=== PATIENT | female | born 1970 | race Asian ===

== ENCOUNTER 2022-09-06 10:52 | Outpatient (REF) | payer MEDICAID, OTHER, SELFPAY ==
--- NOTE | ~2022-09-06 | XR_ITS ---
EXAMINATION: XR LUMBOSACRAL SPINE CLINICAL INFORMATION: Acute midline low back pain COMPARISON: None available. TECHNIQUE: Three views of the lumbosacral spine. FINDINGS: There is normal lumbar lordosis. The vertebral heights, alignment and disc heights are normal. No visible acute fracture, dislocation or subluxation seen. No aggressive lytic or sclerotic process seen either. The paravertebral soft tissues are normal. XR/XR lumbar spine 2-3V IMPRESSION: Unremarkable lumbar spine examination.
== END 2022-09-06 10:53 | disposition home or self-care (01) ==
LOC: HO.XRAY 10:52
PROVIDERS: Visit Provider Student in an Organized Health Care Education/Training Program
DX: M54.50 Low back pain, unspecified (principal)
CPT/HCPCS: 72100

== ENCOUNTER 2023-09-30 12:53 | Outpatient (REF) | payer MEDICAID, OTHER, SELFPAY ==
[2023-09-30 15:27] LABS: Alanine Aminotransferase 17 U/L (0-31); Albumin Level 4.1 g/dL (3.5-5.0); Alkaline Phosphatase 54 U/L (39-117); Anion Gap 11 (12-20); Aspartate Amino Transferase 17 U/L (5-31); Bilirubin Direct 0.1 mg/dL (0.0-0.5); Bilirubin Total 0.4 mg/dL (0.0-1.0); Blood Urea Nitrogen 10 mg/dL (9-16); Calcium 9.5 mg/dL (8.4-10.2); Carbon Dioxide 27 mmol/L (22-29); Chloride 109 mmol/L (96-108); Cholesterol 195 mg/dL (<200); Estimated Glomerular Filt Rate > 60; Glucose Random 106 mg/dL (60-115); HDL Cholesterol 58 mg/dL (>40); LDL Cholesterol Calculated 125 mg/dL (<100); Potassium 4.6 mmol/L (3.3-5.1); Sodium 142 mmol/L (135-145); Total Protein 6.8 g/dL (6.5-8.0); Triglycerides 64 mg/dL (<150)
[2023-09-30 15:32] LABS: TSH reflex Free T4 0.02 uIU/mL (0.32-4.0); Thyroid Stimulating Hormone 0.02 uIU/mL (0.32-4.0); Vitamin D 25-OH Total 24.3 ng/mL (>30)
[2023-09-30 16:12] LABS: Vitamin B12 591 pg/mL (200-900)
[2023-09-30 16:42] LABS: Free T4 (Free Thyroxine) 1.22 ng/dL (0.71-1.85)
== END 2023-09-30 12:54 | disposition home or self-care (01) ==
LOC: HO.CHCLDS 12:53
PROVIDERS: Visit Provider Student in an Organized Health Care Education/Training Program
DX: E53.8 Deficiency of other specified B group vitamins (principal); E03.8 Other specified hypothyroidism; E55.9 Vitamin D deficiency, unspecified
CPT/HCPCS: 36415; 80048; 80061; 80076; 82306; 82607; 84439; 84443

== ENCOUNTER 2024-01-08 11:41 | Outpatient (REF) | payer MEDICAID, OTHER, SELFPAY ==
[2024-01-08 15:04] LABS: Alanine Aminotransferase 16 U/L (0-31); Albumin Level 4.3 g/dL (3.5-5.0); Alkaline Phosphatase 54 U/L (39-117); Anion Gap 12 (12-20); Aspartate Amino Transferase 19 U/L (5-31); Bilirubin Direct 0.2 mg/dL (0.0-0.5); Bilirubin Total 0.8 mg/dL (0.0-1.0); Blood Urea Nitrogen 15 mg/dL (9-16); Calcium 9.8 mg/dL (8.4-10.2); Carbon Dioxide 26 mmol/L (22-29); Chloride 108 mmol/L (96-108); Cholesterol 245 mg/dL (<200); Estimated Glomerular Filt Rate > 60; Glucose Random 87 mg/dL (60-115); HDL Cholesterol 56 mg/dL (>40); LDL Cholesterol Calculated 173 mg/dL (<100); Potassium 3.9 mmol/L (3.3-5.1); Sodium 142 mmol/L (135-145); Total Protein 7.1 g/dL (6.5-8.0); Triglycerides 82 mg/dL (<150)
[2024-01-08 15:19] LABS: TSH reflex Free T4 5.32 uIU/mL (0.32-4.0); Vitamin D 25-OH Total 26.5 ng/mL (>30)
[2024-01-08 16:43] LABS: Free T4 (Free Thyroxine) 0.95 ng/dL (0.71-1.85)
[2024-01-08 18:47] LABS: Folate 12.5 ng/mL (> or = 4.0); Vitamin B12 509 pg/mL (200-900)
== END 2024-01-08 11:42 | disposition home or self-care (01) ==
LOC: HO.CHCLDS 11:41
PROVIDERS: Visit Provider Student in an Organized Health Care Education/Training Program
DX: E03.8 Other specified hypothyroidism (principal); E53.8 Deficiency of other specified B group vitamins; E55.9 Vitamin D deficiency, unspecified
CPT/HCPCS: 36415; 80048; 80061; 80076; 82306; 82607; 82746; 84439; 84443

== ENCOUNTER → 2024-02-05 15:45 | Outpatient (BNV) | payer OTHER, SELFPAY | PROVIDERS: Visit Provider Internal Medicine | DX: Z12.31 Encounter for screening mammogram for malignant neoplasm of breast (principal) | CPT/HCPCS: 77063; 77067 ==

== ENCOUNTER 2024-02-05 15:46 | Outpatient (REF) | payer OTHER, SELFPAY ==
--- NOTE | ~2024-02-05 | MM_ITS ---
EXAMINATION: MM SCREENING DIGITAL BREAST TOMOSYNTHESIS, BILATERAL CLINICAL INFORMATION: Screening. Asymptomatic. COMPARISON: Mammography: No prior images available for comparison. TECHNIQUE: Digital breast mammography with tomosynthesis is performed in both the craniocaudal and mediolateral oblique views along with computer-aided detection (CAD). FINDINGS: There are scattered areas of fibroglandular density (ACR BI-RADS breast composition Category b). There are no significant masses, abnormal calcifications, or other abnormalities. MM/MM tomosynthesis screening BI IMPRESSION: No mammographic evidence of malignancy. ASSESSMENT: BI-RADS BI-RADS 1 - Negative RECOMMENDATION: Routine annual mammography screening. 1 year F/U This examination should not preclude the clinical evaluation of a suspicious palpable abnormality. This patient's information was entered into a reminder system with a target due date for their next mammogram. Electronically signed by: Poppy Gale DO 02/18/2024 12:23 PM EDT
== END 2024-02-05 15:47 | disposition home or self-care (01) ==
LOC: HO.MAMMO 15:46
PROVIDERS: Visit Provider Student in an Organized Health Care Education/Training Program
DX: Z12.31 Encounter for screening mammogram for malignant neoplasm of breast (principal)
CPT/HCPCS: 77063; 77067

== ENCOUNTER 2024-06-24 12:38 | Outpatient (REF) | payer OTHER, SELFPAY ==
--- OUTSIDE RECORDS SUMMARY | 2024-06-24 13:31 | XMS_ITS | Encounter Summary ---
Author Organization [employer] Address [address] [place] [address] [address] [place] [address] Care Team Providers Care Volunteer Services Supervisor Name Role Phone Savannah Zapata MD Primary Care Provider [phone] Reason for Visit * Reason Comments Pre-visit Planning (Unable to reach for PVP screening, LVM) Encounter Details Date Type Department Care Team ([facility] Contact Info) Description 06/10/2024 Patient Outreach [facility] MEDICINE [address] [place] [address] Savannah Zapata MD [address] [place] [address] Pre-visit Planning ((Unable to reach for PVP screening, LVM)) Social History Tobacco Use Types Packs/Day Years Used Date Smoking Tobacco: Never Assessed Comments Unknown Sex and Gender Information Value Date Recorded Sex Assigned at Female 03/04/2022 10:29 AM EDT Legal Sex Female 10:29 AM EDT Gender Identity Female 09/06/2022 9:54 AM EDT Sexual Orientation Straight 09/06/2022 9: 55 AM EDT documented as of this encounter Progress Notes * Arlet Mera - 06/10/2024 10:24 AM EST HECTOR Nice. Placed outbound call to patient to complete pre-visit planning. No answer at this time. Patient name and were not confirmed. CC left voicemail requesting return call. Direct contact information provided. documented in this encounter Plan of Treatment Upcoming Encounters Date Type Department Care Team ([facility] st Contact Info) Description 06/29/2024 10:15 AM EST Procedure Visit [facility] MED & PEDS [address] [place] [address] Savannah Zapata MD [address] [place] [address] documented as of this encounter Visit Diagnoses Not on filedocumented in this encounter Care Teams Volunteer Services Supervisor Relationship Specialty Start Date End Date Savannah Zapata MD [address] [place] [address] PCP - General Family Medicine 09/28/15 documented as of this encounter
--- OUTSIDE RECORDS SUMMARY | 2024-06-24 13:31 | XMS_ITS | Encounter Summary ---
Author Organization [employer] Address [address] [place] [address] [address] [place] [address] Care Team Providers Care Laborer [employer] Name Role Phone Savannah Zapata MD Primary Care Provider [phone] Reason for Visit * Reason Comments Med Refill Encounter Details Date Type Department Care Team (Late st Contact Info) Description 09/17/2022 Refill [facility] MED & PEDS [address] [place] [address] Savannah Zapata MD [address] [place] [address] Social History Tobacco Use Types Packs/Day Years Used Date Smoking Tobacco: Never Assessed Comments Unknown Sex and Gender Information Value Date Recorded Sex Assigned at Female 03/04/2022 10:29 AM EDT Legal Sex Female 10:29 AM EDT Gender Identity Female 09/06/2022 9:54 AM EDT Sexual Orientation Straight 09/06/2022 9: 55 AM EDT COVID-19 Exposure Response Date Recorded In the last 10 days, have yo u been in contact with someone who was confirmed or suspected to have Coronavirus/COVID-19? No / Unsure 09/06/2022 9:52 AM EDT documented as of this encounter Plan of Treatment Upcoming Encounters Date Type Department Care Team (Late st Contact Info) Description 06/29/2024 10:15 AM EST Procedure Visit [facility] CHC MED & PEDS [address] [place] [address] Savannah Zapata MD [address] [place] [address] documented as of this encounter Visit Diagnoses Not on filedocumented in this encounter Care Teams Laborer [employer] Relationship Specialty Start Date End Date Savannah Zapata MD [address] [place] [address] PCP - General Family Medicine 09/28/15 documented as of this encounter
--- OUTSIDE RECORDS SUMMARY | 2024-06-24 13:31 | XMS_ITS | Encounter Summary ---
Author Organization [employer] Address [address] [facility] 7t [place] [address] Care Team Providers Care Curriculum Assistant Principal Name Role Phone Savannah Zapata MD Primary Care Provider [phone] Reason for Visit * Reason Onset Date Comments Lab Orders 09/22/2023 Encounter Details Date Type Department Care Team ([facility] st Contact Info) Description 09/22/2023 Telephone [facility] MEDICINE [address] [place] [address] Savannah Zapata MD [address] [place], [place] [id number] Lab Orders Social History Tobacco Use Types Packs/Day Years Used Date Smoking Tobacco: Never Assessed Comments Unknown Sex and Gender Information Value Date Recorded Sex Assigned at Female 03/04/2022 10:29 AM EDT Legal Sex Female 10:29 AM EDT Gender Identity Female 09/06/2022 9:54 AM EDT Sexual Orientation Straight 09/06/2022 9: 55 AM EDT documented as of this encounter Miscellaneous Notes * Telephone Encounter - Wing Nademe RN - 09/22/2023 4:42 PM EDT Tc to pt's daughter, confirmed pt's name and . Daughter states they would like TSH levels taken again to see how levothyroxine is working. She states pt's [place] doctor was seen last November and recommended pt follow up in three months. The family forgot to schedule appt and wanted this done urgently and refused appts to see PCP in October. Scheduled pt to see PCP on 5/21 at 3 pm. Daughter verbalized understanding and agreement with plan. * Telephone Encounter - Luis Love - 09/22/2023 3:47 PM EDT Tc from the patients daughter requesting lab orders just to make sure the patient is ok there is noconcerns at the moment documented in this encounter Plan of Treatment Upcoming Encounters Date Type Department Care Team (Late st Contact Info) Description 06/29/2024 10:15 AM EST Procedure Visit [facility] MED & PEDS [address] [place] [address] Savannah Zapata MD [address] [place] [address] documented as of this encounter Visit Diagnoses Not on filedocumented in this encounter Care Teams Curriculum Assistant Principal Relationship Specialty Start Date End Date Savannah Zapata MD [address] [place] [address] PCP - General Family Medicine 09/28/15 documented as of this encounter
--- OUTSIDE RECORDS SUMMARY | 2024-06-24 13:31 | XMS_ITS | Encounter Summary ---
Author Organization [employer] Address [address] [place] [address] 7t [place] [address] Care Team Providers Care Children'S Tutor Name Role Phone Savannah Zapata MD Primary Care Provider [phone] Reason for Visit * Reason Onset Date Comments Nurse Triage 06/01/2024 Encounter Details Date Type Department Care Team ([facility] st Contact Info) Description 06/01/2024 Telephone [facility] MEDICINE [address] [place] [address] Savannah Zapata MD [address] [place] [address] Nurse Triage Social History Tobacco Use Types Packs/Day Years Used Date Smoking Tobacco: Never Assessed Comments Unknown Sex and Gender Information Value Date Recorded Sex Assigned at Female 03/04/2022 10:29 AM EDT Legal Sex Female 10:29 AM EDT Gender Identity Female 09/06/2022 9:54 AM EDT Sexual Orientation Straight 09/06/2022 9: 55 AM EDT documented as of this encounter Miscellaneous Notes * Telephone Encounter - Samantha Apodaca MA - 06/03/2024 10:41 AM EST Booked an appt with Dr. Zapata for fu chronic conditions. * Telephone Encounter - Shiloh Breaux LPN - 06/02/2024 4:41 PM EST Triage call returned to patient Daughter with her Mom who reports that patient has had urinary burning off and on for about a year. Reports burning with urination at present and no blood or pus reported no fever has some low back pain. Disposition reviewed and Daughter advised of [facility] hours and availability for today and tomorrow. Daughter will call early AM to see if [facility] has any availability. Daughter is also requesting to schedule routine exam with PCP. No PCP availability for Triage at time of call. Forwarded to PCP and team as FYI to follow up PRN Disposition reviewed and in agreement with plan. [facility] hours and availability explained. Triage nurse informed the patient may have a wait of 1-2 hours because Walk In [facility] may have delays from patient's walking in with urgent medical needs. Protocol Used: Urinary Symptoms (Adult) Protocol-Based Disposition: See in Office or Video Visit Today Override (Final) Disposition: Go to Urgent Care Now Override Reason: End of day or office closed Video visit not offered Positive Triage Question: * Urinating more frequently than usual (i.e., frequency) OR new-onset of the feeling of an urgent need to urinate (i.e., urgency) * All higher-acuity triage questions were negative * Telephone Encounter - Henry Enciso - 06/02/2024 4:02 PM EST Daughter returning call Please call [phone] * Telephone Encounter - Rashmi Esquivel RN - 06/01/2024 1:52 PM EST Called pt. Daughter but phone just kept ringing. Unable to leave voicemail. Called back x2 and phone just rang for a long time and unable to leave any voicemail. RE: Urination pain * Telephone Encounter - Candis Tyler - 06/01/2024 12:51 PM EST Symptom: Urination Pain Outcome: Schedule a same-day appointment or talk to a nurse or provider today Reason: Caller denied all higher acuity questions The caller accepted this outcome. documented in this encounter Plan of Treatment Upcoming Encounters Date Type Department Care Team (Late st Contact Info) Description 06/29/2024 10:15 AM EST Procedure Visit [facility] MED & PEDS [address] [place] [address] Savannah Zapata MD [address] [place] [address] documented as of this encounter Visit Diagnoses Not on filedocumented in this encounter Care Teams Children'S Tutor Relationship Specialty Start Date End Date Savannah Zapata MD [address] [place] [address] PCP - General Family Medicine 09/28/15 documented as of this encounter
--- OUTSIDE RECORDS SUMMARY | 2024-06-24 13:31 | XMS_ITS | Encounter Summary ---
Author Organization [employer] Address [address] [place] [address] 7t [place] [address] Care Team Providers Care Supervisor [employer] Name Role Phone Savannah Zapata MD Primary Care Provider [phone] Reason for Visit * Reason Comments Insomnia Encounter Details Date Type Department Care Team (Latest Contact Info) Description 06/24/2024 11:15 AM EST Office Visit [facility] CHC MED & PEDS [address] [place], [place] [phone] Savannah Zapata MD [address] [place] [address] Other specified hypothyroidism (Primary Dx); Vitamin D deficiency; Insomnia, unspecified type Social History Tobacco Use Types Packs/Day Years Used Date Smoking Tobacco: Never Smokeless Tobacco: Never Tobacco Cessation:Counseling Given: Not Answered Alcohol Use Standard Drinks/Week Comments Never 0 (1 standard drink = 0.6 oz pur e alcohol) Depression Answer Date Recorded Patient Health Questionnaire-9 Score 6 06/24/2024 Patient Health Questionnaire-9 Score 6 06/24/2024 Last PHQ-9: Questionnaire Data Not on file 0 06/24/2024 Depression Answer Date Recorded Patient Health Questionnaire-2 Score 2 06/24/2024 Comments Unknown Sex and Gender Information Value Date Recorded Sex Assigned at Female 03/04/2022 10:29 AM EDT Legal Sex Female 10:29 AM EDT Gender Identity Female 09/06/2022 9:54 AM EDT Sexual Orientation Straight 09/06/2022 9: 55 AM EDT documented as of this encounter Last Filed Vital Signs Vital Sign Reading Time Taken Comments Blood Pressure 132/77 06/24/2024 11:25 AM EST Pulse 58 06/24/2024 11:25 AM EST Temperature 36.7 ??C (98 ??F) 06/24/2024 11:25 AM EST Respiratory Rate 18 06/24/2024 11:25 AM EST Oxygen Saturation 98% 06/24/2024 11:25 AM EST Inhaled Oxygen Concentration - - Weight 79.8 kg (176 lb) 06/24/2024 11:25 AM EST Height 162.6 cm (5' 4 ) 06/24/2024 11:25 AM EST Body Mass Index 30.21 06/24/2024 11:25 AM EST documented in this encounter Plan of Treatment Upcoming Encounters Date Type Department Care Team (Late st Contact Info) Description 06/29/2024 10:15 AM EST Procedure Visit [facility] MED & PEDS [address] [place], [place] [phone] Savannah Zapata MD [address] [place], [place] [phone] Scheduled Orders Name Type Priority Associated Diagnoses Orde r Schedule TSH with Reflex to Free T4 Lab Routine Other specified hypothyroidism Expected: 06/24/2024 (Approximate), Expires: 06/24/2025 Hepatic Function Panel Lab Routine Other specified hypothyroidism Expected: 06/24/2024 (Approximate), Expires: 06/24/2025 Lipid Panel, Standard Lab Routine Other specified hypothyroidism Expected: 06/24/2024 (Approximate), Expires: 06/24/2025 Basic Metabolic Panel Lab Routine Other specified hypothyroidism Expected: 06/24/2024 (Approximate), Expires: 06/24/2025 Vitamin D, 25-Hydroxy, Total, Immunoassay Lab Routine Vitamin D deficiency Expected: 06/24/2024 (Approximate), Expires: 06/24/2025 documented as of this encounter Visit Diagnoses Diagnosis Other specified hypothyroidism- Primary Vitamin D deficiency Insomnia, unspecified type documented in this encounter Additional Health Concerns Assessment Noted Time PHQ-9 Depression Total Score: 6 06/24/19 11:26 AM EST documented as of this encounter Care Teams Supervisor [employer] Relationship Specialty Start Date End Date Savannah Zapata MD [address] [place] [address] PCP - General Family Medicine 09/28/15 documented as of this encounter
--- OUTSIDE RECORDS SUMMARY | 2024-06-24 13:31 | XMS_ITS | Encounter Summary ---
Author Organization [employer] Address [address] [place] [address] 7[address] [place] [address] Care Team Providers Care Mail Sorter Name Role Phone Savannah Zapata MD Primary Care Provider [phone] Reason for Visit * Reason Comments Med Refill Encounter Details Date Type Department Care Team (Late Contact Info) Description 09/22/2023 Refill [facility] MED & PEDS [address] [place] [address] Savannah Zapata MD [address] [place] [address] Social History Tobacco Use Types Packs/Day Years [...] Encounters Date Type Department Care Team (Late Contact Info) Description 06/29/2024 10:15 AM EST Procedure Visit [facility] CHC MED & PEDS [address] [place] [address] Savannah Zapata MD [address] [place] [address] documented as of this encounter Visit Diagnoses Not on filedocumented in this encounter Care Teams Mail Sorter Relationship Specialty Start Date End Date Savannah Zapata MD [address] [place] [address], [place] [address] PCP - General Family Medicine 09/28/15 documented as of this encounter
--- OUTSIDE RECORDS SUMMARY | 2024-06-24 13:31 | XMS_ITS | Encounter Summary ---
Author Organization [employer] Address [address] [place] [address] [address] [place] [address] Care Team Providers Care Dish Cloth Inspector Name Role Phone Savannah Zapata MD Primary Care Provider [phone] Reason for Visit * Reason Onset Date Comments Med Refill 09/22/2023 Encounter Details Date Type Department Care Team (Late st Contact Info) Description 09/22/2023 Telephone [facility] MEDICINE [address] [place] [address] Savannah Zapata MD [address] [place] [address] Med Refill Social History Tobacco Use Types Packs/Day Years Used Date Smoking Tobacco: Never Assessed Comments Unknown Sex and Gender Information Value Date Recorded Sex Assigned at Female 03/04/2022 10:29 AM EDT Legal Sex Female 10:29 AM EDT Gender Identity Female 09/06/2022 9:54 AM EDT Sexual Orientation Straight 09/06/2022 9: 55 AM EDT documented as of this encounter Miscellaneous Notes * Telephone Encounter - Luis Love - 09/22/2023 3:38 PM EDT Tc from patients daughter requesting the status of the levothyroxine (Synthroid, Levoxyl) 100 MCG tablet medical technical writer did call pharmacy and was told has not received the script for the medication documented in this encounter Plan of Treatment Upcoming Encounters Date Type Department Care Team (Late Contact Info) Description 06/29/2024 10:15 AM EST Procedure Visit [facility] CHC MED & PEDS [address] [place] [address] Savannah Zapata MD [address] [place] [address] documented as of this encounter Visit Diagnoses Not on filedocumented in this encounter Care Teams Dish Cloth Inspector Relationship Specialty Start Date End Date Savannah Zapata MD [address] [place] [address] PCP - General Family Medicine 09/28/15 documented as of this encounter
--- OUTSIDE RECORDS SUMMARY | 2024-06-24 13:31 | XMS_ITS | Clinical Summary ---
Author Organization [employer] Address [address] [facility] [address] [place] [address] Care Team Providers Care Textile Knitter Name Role Phone Savannah Zapata MD Primary Care Provider [phone] Allergies No known active allergies Medications cholecalciferol (Vitamin D-3) 25 MCG (1000 UT) tablet Take 1 tablet (25 mcg) by mouth Once per day. 60 tablet 3 01/12/2024 5 Active levothyroxine (Synthroid) 100 MCG tablet Take 1 tablet (100 mcg) by mouth before breakfast. 30 tablet 11 01/12/2024 5 Active Melatonin 3 MG capsule 1 cap daily at night 30 capsule 3 06/24/2024 Active ibuprofen 600 MG tablet Take 1 tablet (600 mg) by mouth 3 times daily. 90 tablet 06/24/2024 5 Active Active Problems Problem Noted Date Diagnosed Date Vitamin D deficiency 01/08/2024 B12 deficiency 01/08/2024 Other specified hypothyroidism 09/06/2022 Encounters Date Type Department Care Team Description 06/24/2024 11:15 AM EST Office Visit [facility] [address] [place], [place] [phone] Savannah Zapata MD Other specified hypothyroidism (Primary Dx); Vitamin D deficiency; Insomnia, unspecified type 06/24/2024 Travel 06/10/2024 Patient Outreach [facility] [address] [place] [address] Savannah Zapata MD Pre-visit Planning ((Unable to reach for PVP screening, LVM)) 06/01/2024 Telephone [facility] [address] [place] [address] Savannah Zapata MD Nurse Triage from Last 3 Months Immunizations Name Administration Dates Next Due MMR 01/11/2019 Tdap 01/11/2019,12/03/2017 Social History Tobacco Use Types Packs/Day Years [...] Orientation Straight 09/06/2022 9: 55 AM EDT Last Filed Vital Signs Vital Sign Reading [...] Mass Index 30.21 06/24/2024 11:25 AM EST Plan of Treatment Upcoming Encounters Date Type Department Care Team (Late st Contact Info) Description 06/29/2024 10:15 AM EST Procedure Visit [facility] [address] [place] [address] Savannah Zapata MD [address] [place] [address] Health Maintenance Due Date Last Done Comments CT Colonography 1968 Colonoscopy 1968 FIT 1968 FOBT 1968 HIV Screening 1968 SDOH Screening 1968 Sigmoidoscopy 1968 Hepatitis C Screening 1986 Hepatitis B Vaccines (1 of 3 - 19+ 3-dose series) 1987 Pap Smear 1989 Cervical Cancer Screening 1998 HPV/Cotest 1998 Pneumococcal Vaccine: 50+ Years (1 of 1 - PCV) 2018 Zoster Vaccines (1 of 2) 2018 COVID-19 Vaccine (2 - 2023-2 5 season) 2024 08/26/2020 Influenza Vaccine (#1) 2024 Alcohol/Substance Use Screening 06/24/2025 06/24/2024 Depression Screening 06/24/2025 06/24/2024, 06/24/2024 Tobacco Screening 06/24/2025 06/24/2024 Mammogram 02/04/2026 02/05/2024 Colorectal Cancer Screening 02/19/2027 FIT DNA/Cologuard 02/19/2027 02/20/2024 DTaP/Tdap/Td Vaccines (3 - T d or Tdap) 01/11/2029 01/11/2019, 12/03/2017 RSV Patients and Patients Aged 60 years or older (1 - 1-dose 75+ series) 2043 HIB Vaccines Aged Out No longer eligi ble based on patient's age to complete this topic HPV Vaccines Aged Out No longer eligi ble based on patient's age to complete this topic Hepatitis A Vaccines Aged Out No long er eligible based on patient's age to complete this topic IPV Vaccines Aged Out No longer eligi ble based on patient's age to complete this topic Meningococcal Vaccine Aged Out No michael sal eligible based on patient's age to complete this topic RSV under 20 months Aged Out No longe r eligible based on patient's age to complete this topic Rotavirus Vaccines Aged Out No longer eligible based on patient's age to complete this topic Procedures Procedure Name Priority Date/Time Associated Diagnosis Comments LAB COLOGUARD?? COLON CANCER SCREEN Routine 02/20/2024 2:00 AM EDT Encounter for screening for malignant neoplasm of colon BI MAMMOGRAM SCREENING TOMOSYNTHESIS BILATERAL Routine 02/05/2024 3:55 PM EDT Encounter for screening mammogram for breast cancer from Last 3 Months or Most Recently Relevant to Health Maintenance Results * Cologuard?? colon cancer screening (02/20/2024 2:00 AM EDT) Cologuard Result Negative Negative 02/26/20 8:47 PM EDT [facility] (CLIA #:[id number]) Comment: NEGATIVE TEST RESULT. A negative Cologuard result indicates a low likelihood that a colorectal cancer (CRC) or advanced adenoma (adenomatous polyps with more advanced pre-malignant features) ??is present. The chance that a person with a negative Cologuard test has a colorectal cancer is less than 1 in 1500 (negative predictive value >99.9%) or has an ??advanced adenoma is less than ??5.3% (negative predictive value 94.7%). These data are based on a prospective cross-sectional study of 10,000 individuals at average risk for colorectal cancer who were screened with both Cologuard and colonoscopy. (Ivy Barraza. et al, N Engl J Med 2014;370(14):1286- 1297) The normal value (reference range) for this assay is negative. COLOGUARD RE-SCREENING RECOMMENDATION: Periodic colorectal cancer screening is an important part of preventive healthcare for asymptomatic individuals at average risk for colorectal cancer. ??Following a negative Cologuard result, the [place] [employer] Society and U.S. Multi-Society Task Force screening guidelines recommend a Cologuard re-screening interval of 3 years. References: [place] [employer] Guideline for Colorectal Cancer Screening: https://www.cancer.org/cancer/swoln-krplrm-zixwtu/btpzfbboy-wmqfnxjkz-mjgtbrw/ac s-rec ommendations.html.; Home ABURTO, Anabel ROBERSON, Vivian CELESTE, Colorectal Cancer Screening: Recommendations for Physicians and Patients from the U.S. Multi-Society Task Force on Colorectal Cancer Screening , Am J Gastroenterology 2017; 112:7042-4315. TEST DESCRIPTION: Composite algorithmic analysis of stool DNA-biomarkers with hemoglobin immunoassay. ?? Quantitative values of individual biomarkers are not reportable and are not associated with individual biomarker result reference ranges. Cologuard is intended for colorectal cancer screening of adults of either sex, 45 years or older, who are at average-risk for colorectal cancer (CRC). Cologuard has been approved for use by the U.S. FDA. The performance of Cologuard was established in a cross sectional study of average-risk adults aged 50-84. Cologuard performance in patients ages 45 to 49 years was estimated by sub-group analysis of near-age groups. Colonoscopies performed for a positive result may find as the most clinically significant lesion: colorectal cancer [4.0%], advanced adenoma (including sessile serrated polyps greater than or equal to 1cm diameter) [20%] or non- advanced adenoma [31%]; or no colorectal neoplasia [45%]. These estimates are derived from a prospective cross-sectional screening study of 10,000 individuals at average risk for colorectal cancer who were screened with both Cologuard and colonoscopy. (Ivy Walker et al, N Engl J Med 2014;370(14):2452-2124.) Cologuard may produce a false negative or false positive result (no colorectal cancer or precancerous polyp present at colonoscopy follow up). A negative Cologuard test result does not guarantee the absence of CRC or advanced adenoma (pre-cancer). The current Cologuard screening interval is every 3 years. ([place] [employer] Society and U.S. Multi-Society Task Force). Cologuard performance data in a 10,000 patient pivotal study using colonoscopy as the reference method can be accessed at the following location: www.[employer]/results. Additional description of the Cologuard test process, warnings and precautions can be found at www.[employer].com. Stool specimen (specimen) 02/20/2024 2:00 AM EDT 02/21/2024 10:46 AM EDT us Savannah Zapata MD LAB MOLECULAR DIAGNOSTICS ORDERA BLES Final Result [facility] (CLIA #:[id number]) [address] [address], * BI Mammogram Screening Tomosynthesis Bilateral (02/05/2024 3:55 PM EDT) Anatomical Region Laterality Modality Breast Bilateral Mammography 02/05/2024 3:55 PM EDT Narrative 02/18/2024 12:26 PM EDT ? [facility] [place] ? [address] ?[place] [address] ? Mammography Report ? Signed ? Patient: Cukur,Emine ?MR#: [id number] ? : 1970 ?Acct:[id number] ? Age/Sex: 53 / F ?ADM Date: 02/05/24 ? Loc: HO.MAMMO ? Attending Dr: Savannah S Jodi MD ? Ordering Physician: Jodi,Savannah S MD ?Results: 1Negati ?? ve ? Date of Service: 02/05/24 ?Follow Up: 1 Year From Orig ?? inal Mammogram ? Procedure(s): MM tomosynthesis screening BI ?? Accession Number(s): [id number] ? cc: Savannah Zapata MD ? EXAMINATION: ?? MM SCREENING DIGITAL BREAST TOMOSYNTHESIS, BILATERAL ? CLINICAL INFORMATION: ? Screening. Asymptomatic. ? COMPARISON: ?? Mammography: No prior images available for comparison. ? TECHNIQUE: ?? Digital breast mammography with tomosynthesis is performed in both the ?? craniocaudal and mediolateral oblique views along with computer-aided ?? detection (CAD). ? FINDINGS: ?? There are scattered areas of fibroglandular density (ACR BI-RADS breast ?? composition Category b). ? There are no significant masses, abnormal calcifications, or other ?? abnormalities. ? MM/MM tomosynthesis screening BI ?? IMPRESSION: ?? No mammographic evidence of malignancy. ? ASSESSMENT: ? BI-RADS BI-RADS 1 - Negative ? RECOMMENDATION: ?? Routine annual mammography screening. ? 1 year F/U ? This examination should not preclude the clinical evaluation of a ?? suspicious palpable abnormality. ? This patient's information was entered into a reminder system with a ?? target due date for their next mammogram. ? Electronically signed by: ??Poppy Gale DO ??02/18/2024 12:23 PM EDT ? Dictated By: ?Poppy Gale DO ? Signed By: ?<Electronically signed by Poppy Gale, DO in OV> ? 02/18/24 1223 ? DD/ 1555 ? TD/TT: 02/05/24 1620 ? Proposal Rep: ? Procedure Note Jose, Image - 02/18/2024 [facility] [address] [place] [address] Mammography Report Signed Patient: Moise Manuel#: [id number] : 1970Acct:[id number] Age/Sex: 53 / FADM Date: 02/05/24 Loc: HO.MAMMO Attending Dr: Savannah Zapata MD Ordering Physician: Savannah Zapata MDResults: 1Negati ve Date of Service: 02/05/24Follow Up: 1 Year From Orig inal Mammogram Procedure(s): MM tomosynthesis screening BI Accession Number(s): [id number] cc: Savannah Zapata MD EXAMINATION: MM SCREENING DIGITAL BREAST TOMOSYNTHESIS, BILATERAL CLINICAL INFORMATION: Screening. Asymptomatic. COMPARISON: Mammography: No prior images available for comparison. TECHNIQUE: Digital breast mammography with tomosynthesis is performed in both the craniocaudal and mediolateral oblique views along with computer-aided detection (CAD). FINDINGS: There are scattered areas of fibroglandular density (ACR BI-RADS breast composition Category b). There are no significant masses, abnormal calcifications, or other abnormalities. MM/MM tomosynthesis screening BI IMPRESSION: No mammographic evidence of malignancy. ASSESSMENT: BI-RADS BI-RADS 1 - Negative RECOMMENDATION: Routine annual mammography screening. 1 year F/U This examination should not preclude the clinical evaluation of a suspicious palpable abnormality. This patient's information was entered into a reminder system with a target due date for their next mammogram. Electronically signed by: Poppy Gale DO 02/18/2024 12:23 PM EDT Dictated By: Poppy Gale DO Signed By: <Electronically signed by Poppy Gale DO in OV> 02/18/24 1223 DD/ 1555 TD/TT: 02/05/24 1620 Proposal Rep: us Savannah Zapata MD IMG BI PROCEDURES Final Result from Last 3 Months or Most Recently Relevant to Health Maintenance Insurance * Guarantor: Nakul Manuel Account Type Relation to Patient Date of Phone Billing Address Personal/Family Self [address] [place] [id number] [facility] Care Teams Textile Knitter Relationship Specialty Start Date End Date Savannah Zapata MD [address] [place] [id number] PCP - General Family Medicine 09/28/15
--- OUTSIDE RECORDS SUMMARY | 2024-06-24 13:31 | XMS_ITS | Encounter Summary ---
Author Organization [employer] Address [address] [place] [address] [address] [place] [address] Care Team Providers Care Fitting Room Operator Name Role Phone Savannah Zapata MD Primary Care Provider [phone] Encounter Details Date Type Department Care Team (Late Contact Info) Description 09/06/2022 Abstract [employer] [facility] [address] [place], [place] [phone] Savannah Zapata MD [address] [place] [address] Social History Tobacco Use Types Packs/Day Years [...] Description 06/29/2024 10:15 AM EST Procedure Visit [facility] [address] [place], [place] [phone] Savannah Zapata MD [address] [place] [address] documented as of this encounter Visit Diagnoses Not on filedocumented in this encounter Care Teams Fitting Room Operator Relationship Specialty Start Date End Date Savannah Zapata MD [address] [place] [phone] PCP - General Family Medicine 09/28/15 documented as of this encounter
--- OUTSIDE RECORDS SUMMARY | 2024-06-24 13:31 | XMS_ITS | Encounter Summary ---
Author Organization [employer] Address [address] [place] [address] [address]t [place] [address] Care Team Providers Care Bankruptcy Judge Name Role Phone Savannah Zapata MD Primary Care Provider [phone] Encounter Details Date Type Department Care Team (Latest Contact Info) Description 06/24/2024 Travel Social History Tobacco Use Types Packs/Day Years Used Date Smoking Tobacco: Never Smokeless Tobacco: Never Alcohol Use Standard Drinks/Week Comments Never 0 [...] 10:15 AM EST Procedure Visit [facility] [address] [place], [place] [phone] Savannah Zapata MD [address] [place] [address] documented as of this encounter Visit Diagnoses Not on filedocumented in this encounter Additional Health Concerns Assessment Noted Time PHQ-9 Depression Total Score: 6 06/24/19 25 11:26 AM EST documented as of this encounter Care Teams Bankruptcy Judge Relationship Specialty Start Date End Date Savannah Zapata MD [address] [place] [phone] PCP - General Family Medicine 09/28/15 documented as of this encounter
[2024-06-24 14:40] LABS: Alanine Aminotransferase 21 U/L (0-31); Alkaline Phosphatase 59 U/L (39-117); Anion Gap 9 (12-20); Aspartate Amino Transferase 25 U/L (5-31); Bilirubin Direct 0.2 mg/dL (0.0-0.5); Bilirubin Total 0.5 mg/dL (0.0-1.0); Blood Urea Nitrogen 12 mg/dL (9-16); Calcium 9.5 mg/dL (8.4-10.2); Carbon Dioxide 26 mmol/L (22-29); Chloride 110 mmol/L (96-108); Cholesterol 202 mg/dL (<200); Estimated Glomerular Filt Rate > 60; Glucose Random 97 mg/dL (60-115); HDL Cholesterol 54 mg/dL (>40); LDL Cholesterol Calculated 126 mg/dL (<100); Potassium 4.4 mmol/L (3.3-5.1); Sodium 141 mmol/L (135-145); Triglycerides 113 mg/dL (<150)
[2024-06-24 14:49] LABS: TSH reflex Free T4 0.09 uIU/mL (0.32-4.0)
[2024-06-24 15:29] LABS: Free T4 (Free Thyroxine) 1.29 ng/dL (0.71-1.85)
== END 2024-06-24 12:39 | disposition home or self-care (01) ==
LOC: HO.CHCLDS 12:38
PROVIDERS: Visit Provider Student in an Organized Health Care Education/Training Program
DX: E03.8 Other specified hypothyroidism (principal); E55.9 Vitamin D deficiency, unspecified
CPT/HCPCS: 36415; 80048; 80061; 80076; 82306; 84439; 84443

== ENCOUNTER 2024-06-29 13:19 | Outpatient (REF) | payer OTHER, SELFPAY ==
--- OUTSIDE RECORDS SUMMARY | 2024-06-29 16:20 | XMS_ITS | Encounter Summary ---
Author Organization [employer] Address [address] [place] [address] [address] [place] [address] Care Team Providers Care Trap Setter Name Role Phone Savannah Zapata MD Primary Care Provider [phone] Reason for Visit * Reason Comments Med Refill Encounter Details Date Type Department Care Team ([facility] st Contact Info) Description 09/22/2023 Refill [facility] [address] [place] [address] Savannah Zapata MD [address] [place] [address] Social History Tobacco Use Types Packs/Day Years Used Date Smoking Tobacco: Never Assessed Comments Unknown Sex and Gender Information Value Date Recorded Sex Assigned at Female 03/04/2022 10:29 AM EDT Legal Sex Female 10:29 AM EDT Gender Identity Female 09/06/2022 9:54 AM EDT Sexual Orientation Straight 09/06/2022 9: 55 AM EDT documented as of this encounter Plan of Treatment Not on file documented as of this encounter Visit Diagnoses Not on filedocumented in this encounter Care Teams Trap Setter Relationship Specialty Start Date End Date Savannah Zapata MD [address] [place] [address] PCP - General Family Medicine 09/28/15 documented as of this encounter
--- OUTSIDE RECORDS SUMMARY | 2024-06-29 16:20 | XMS_ITS | Encounter Summary ---
Author Organization [employer] Address [address] [place] [address] 7t [place] [address] Care Team Providers Care Project Development Director Name Role Phone Savannah Zapata MD Primary Care Provider [phone] Reason for Visit * Reason Comments Pre-visit Planning (Unable to reach for PVP screening, LVM) Encounter Details Date Type Department Care Team ([facility] st Contact Info) Description 06/10/2024 Patient Outreach [facility] [address] [place] [address] Savannah Zapata MD [address] [place] [address] Pre-visit Planning ((Unable to reach for PVP [...] documented in this encounter Plan of Treatment Not on file documented as of this encounter Visit Diagnoses Not on filedocumented in this encounter Care Teams Project Development Director Relationship Specialty Start Date End Date Savannah Zapata MD [address] [place] [address] PCP - General Family Medicine 09/28/15 documented as of this encounter
--- OUTSIDE RECORDS SUMMARY | 2024-06-29 16:20 | XMS_ITS | Encounter Summary ---
Author Organization [employer] Address [address] [place] [address] 7[address] [place] [address] Care Team Providers Care Integrated Marketing Manager Name Role Phone Savannah Zapata MD Primary Care Provider [phone] Reason for Visit * Reason Comments Insomnia Encounter Details Date Type Department Care Team (Latest Contact Info) Description 06/24/2024 11:15 AM EST Office Visit [facility] [address] [place] [address] Savannah Zapata MD [address] [place] [address] Other specified hypothyroidism (Primary Dx); Vitamin D [...] 11:25 AM EST documented in this encounter Progress Notes * Savannah Zapata MD - 06/24/2024 11:15 AM EST Subjective Patient ID: Nakul Manuel is a 54 y.o. female who presents for No chief complaint on file.. Insomnia This is a new problem. The current episode started more than 1 month ago. The problem occurs constantly. The problem has been unchanged. Pertinent negatives include no chest pain, headaches or neck pain. The symptoms are aggravated by stress. She has tried nothing for the symptoms. Review of Systems Constitutional: Negative. Respiratory: Negative. Negative for shortness of breath. Cardiovascular: Negative for chest pain and palpitations. Gastrointestinal: Negative. Genitourinary: Negative. Musculoskeletal: Negative for neck pain. Neurological: Negative for headaches. Psychiatric/Behavioral: The patient has insomnia. Objective Physical Exam Constitutional: Appearance: Normal appearance. Cardiovascular: Rate and Rhythm: Normal rate and regular rhythm. Pulses: Normal pulses. Heart sounds: Normal heart sounds. Pulmonary: Effort: Pulmonary effort is normal. Abdominal: General: Abdomen is flat. Neurological: Mental Status: She is alert. Assessment/Plan Diagnoses and all orders for this visit: Other specified hypothyroidism Comments: Labs ordered Cont levothyroxine Orders: - TSH with Reflex to Free T4; Future - Hepatic Function Panel; Future - Lipid Panel, Standard; Future - Basic Metabolic Panel; Future Vitamin D deficiency Comments: advised daily Vit D Orders: - Vitamin D, 25-Hydroxy, Total, Immunoassay; Future Insomnia, unspecified type Comments: Started on Melatonin Educated about stress management Other orders - Melatonin 3 MG capsule; 1 cap daily at night - ibuprofen 600 MG tablet; Take 1 tablet (600 mg) by mouth 3 times daily. documented in this encounter Plan of Treatment Not on file documented as of this encounter Procedures Procedure Name Priority Date/Time Associated Diagnosis Comments VITAMIN D,25-OH,TOTAL,IA Routine 06/24/2024 12:39 PM EST Vitamin D deficiency TSH W/REFLEX TO FT4 Routine 06/24/2024 12:39 PM EST Other specified hypothyroidism HEPATIC FUNCTION PANEL Routine 06/24/2024 12:39 PM EST Other specified hypothyroidism LIPID PANEL, STANDARD Routine 06/24/2024 12:39 PM EST Other specified hypothyroidism BASIC METABOLIC PANEL Routine 06/24/2024 12:39 PM EST Other specified hypothyroidism documented in this encounter Results * Vitamin D, 25-Hydroxy, Total, Immunoassay (06/24/2024 12:39 PM EST) Vitamin D 25-OH Total 40.0 >30 ng/mL [facility] Comment:Health Based Referen ce Values*< 20 ng/mL Gnylauoxf52-82 ng/mL Insufficient> 30 ng/mL Sufficient*Demetria MEAD. N Engl J Med. 2007;357:266-280Care must be taken in interpreting Vitamin D results fromdifferent laboratories and methodologies. Published datademonstrated that results from patients undergoinghemodialysis may show a negative bias when tested withvarious automated 25-OH vitamin D assays when compared toLC-MS/MS.When testing samples from patients whose predominant form ofVitamin D is Vitamin D2, such as patients receiving VitaminD2 supplementation, results that are subtherapeutic shouldbe confirmed with another method such as LC-MS/MS. Blood Venous blood specimen / Unknown 06/24/2024 12:39 PM EST 06/24/2024 2:06 PM EST us Savannah Zapata MD LAB BLOOD ORDERABLES Final Resul t Performing Organization Address City/[facility] de Phone Number [facility] [address] [place] [phone] [phone] * (ABNORMAL) Basic Metabolic Panel (06/24/2024 12:39 PM EST) Sodium 141 135 - 145 mmol/L [facility] Potassium 4.4 3.3 - 5.1 mmol/L [facility] Chloride 110(H) 96 - 108 mmol/L [facility] Carbon Dioxide 26 22 - 29 mmol/L [facility] Anion Gap 9(L) 12 - 20 [facility] Urea Nitrogen (BUN) 12 9 - 16 mg/dL [facility] Creatinine, Serum 0.59 0.5 - 1.4 mg/dL [facility] Estimated Glomerular Filt Rate >60 [facility] Comment:Chronic Kidney Disea se: Estimated GFR < 60 mL/min/1.02e5Gesyyj Kidney Disease: Estimated GFR < 15 mL/min/1.73m2 Glucose 97 60 - 115 mg/dL [facility] Calcium 9.5 8.4 - 10.2 mg/dL [facility] Blood Venous blood specimen / Unknown 06/24/2024 12:39 PM EST 06/24/2024 2:06 PM EST Savannah Zapata MD LAB BLOOD ORDERABLES Final Resul t Performing Organization Address [facility] Co de Phone Number [facility] [address] [place] [phone] * (ABNORMAL) Lipid Panel, Standard (06/24/2024 12:39 PM EST) Triglycerides 113 <150 mg/dL [facility] Comment:Desirable Triglyceri de: less than 150 mg/dLBorderline High Triglyceride 150-199 mg/dLHigh Triglyceride: 200-499 mg/dLVery High Triglyceride: greater than or equal to 5OO mg/dL Cholesterol 202(H) <200 mg/dL [facility] Comment:Desirable Cholestero l: less than 200 mg/dLBorderline High Cholesterol: 200-239 mg/dLHigh Cholesterol: greater than 239 mg/dL LDL Cholesterol Calculated 126(H) <100 mg/dL [facility] Comment:Desirable LDL: less than 100 mg/dLNear Optimal/Above Optimal LDL: 110- 129 mg/dLBorderline High LDL: 130-159 mg/dLHigh LDL: 160-189 mg/dLVery High LDL: greater than or equal to 190 mg/dL HDL Cholesterol 54 >40 mg/dL [facility] Comment:Desirable HDL: great er than 40 mg/dL Note: This HDL assay may give artificially low results in patients with liver disease. Blood Venous blood specimen / Unknown 06/24/2024 12:39 PM EST 06/24/2024 2:06 PM EST Savannah Zapata MD LAB BLOOD ORDERABLES Final Resul t Performing Organization Address [facility] Co de Phone Number [facility] [address] [place] [phone] * Hepatic Function Panel (06/24/2024 12:39 PM EST) Bilirubin, Total 0.5 0.0 - 1.0 mg/dL [facility] Bilirubin, Direct 0.2 0.0 - 0.5 mg/dL [facility] Aspartate Amino Transferase 25 5 - 31 U/L [facility] Alanine Aminotransferase 21 0 - 31 U/L [facility] Total Protein 7.0 6.5 - 8.0 g/dL [facility] Albumin Level 4.0 3.5 - 5.0 g/dL [facility] Alkaline Phosphatase 59 39 - 117 U/L [facility] Blood Venous blood specimen / Unknown 06/24/2024 12:39 PM EST 06/24/2024 2:06 PM EST Savannah Zapata MD LAB BLOOD ORDERABLES Final Resul t Performing Organization Address [facility] Co de Phone Number [facility] [address] [place] [phone] * (ABNORMAL) TSH with Reflex to Free T4 (06/24/2024 12:39 PM EST) TSH reflex Free T4 0.09(L) 0.32 - 4.0 uIU/mL [facility] Blood Venous blood specimen / Unknown 06/24/2024 12:39 PM EST 06/24/2024 2:06 PM EST us Savannah Zapata MD LAB BLOOD ORDERABLES Final Resul t [facility] [address] [place] [phone] documented in this encounter Visit Diagnoses Diagnosis Other specified hypothyroidism- Primary Vitamin D deficiency Insomnia, unspecified type documented in this encounter Additional Health Concerns Assessment Noted Time PHQ-9 Depression Total Score: 6 06/24/19 25 11:26 AM EST documented as of this encounter Care Teams Integrated Marketing Manager Relationship Specialty Start Date End Date Savannah Zapata MD [address] [place] [address] PCP - General Family Medicine 09/28/15 documented as of this encounter
--- OUTSIDE RECORDS SUMMARY | 2024-06-29 16:20 | XMS_ITS | Encounter Summary ---
Author Organization [employer] Address [address] [place] [address] [address] [place] [address] Care Team Providers Care Bleach Analyst Name Role Phone Savannah Zapata MD Primary Care Provider [phone] Reason for Visit * Reason Onset Date Comments Lab Orders 09/22/2023 Encounter Details Date Type Department Care Team ([facility] st Contact Info) Description 09/22/2023 Telephone [facility] [address] [place] [address] Savannah Zapata MD [address] [place], [place] [phone] Lab Orders Social History Tobacco Use Types [...] Miscellaneous Notes * Telephone Encounter - Wing Nadeem RN - 09/22/2023 4:42 PM EDT Tc to pt's daughter, confirmed pt's name and . Daughter states they would like TSH levels taken again to see how levothyroxine is working. She states pt's [place] doctor was seen last November and recommended pt follow up in three months. The family forgot to schedule appt and wanted this done urgently and refused appts to see PCP in October. Scheduled pt to see PCP on 09/22 at 3 pm. Daughter verbalized understanding and agreement with plan. * Telephone Encounter - Luis Perez - 09/22/2023 3:47 PM EDT Tc from the patients daughter requesting lab orders just to make sure the patient is ok there is noconcerns at the moment documented in this encounter Plan of Treatment Not on file documented as of this encounter Visit Diagnoses Not on filedocumented in this encounter Care Teams Bleach Analyst Relationship Specialty Start Date End Date Savannah Zapata MD [address] [place] [address] PCP - General Family Medicine 09/28/15 documented as of this encounter
--- OUTSIDE RECORDS SUMMARY | 2024-06-29 16:20 | XMS_ITS | Encounter Summary ---
Author Organization [employer] Address [address] [place] [address] [address] [place] [address] Care Team Providers Care Vessel Manager Name Role Phone Savannah Zapata MD Primary Care Provider [phone] Reason for Visit * Reason Comments Med Refill Encounter Details Date Type Department Care Team ([facility] Contact Info) Description 09/17/2022 Refill [facility]EDS [address] [place], [place] [phone] Savannah Zapata MD [address] [place] [address] Social History Tobacco Use Types Packs/Day Years [...] on filedocumented in this encounter Care Teams Vessel Manager Relationship Specialty Start Date End Date Savannah Zapata MD [address] [place] [phone] PCP - General Family Medicine 09/28/15 documented as of this encounter
--- OUTSIDE RECORDS SUMMARY | 2024-06-29 16:20 | XMS_ITS | Encounter Summary ---
Author Organization [employer] Address [address] [place] [address] [address] [place] [address] Care Team Providers Care Pipe Foreman Name Role Phone Savannah Zapata MD Primary Care Provider [phone] Reason for Visit * Reason Comments Gynecologic Exam Encounter Details Date Type Department Care Team (Latest Contact Info) Description 06/29/2024 10:15 AM EST Procedure Visit [facility] MED & PEDS [address] [place] [address] Savannah Zapata MD [address] [place] [address] Encounter for annual routine gynecological examination (Primary Dx); Dysuria Social History Tobacco Use Types Packs/Day Years [...] Patient Health Questionnaire-2 Score 2 06/24/2024 Comments No Sex and Gender Information Value Date Recorded Sex Assigned at Female 03/04/2022 10:29 AM EDT Legal Sex Female 10:29 AM EDT Gender Identity Female 09/06/2022 9:54 AM EDT Sexual Orientation Straight 09/06/2022 9: 55 AM EDT documented as of this encounter Last Filed Vital Signs Vital Sign Reading Time Taken Comments Blood Pressure 131/69 06/29/2024 9:44 AM EST Pulse 60 06/29/2024 9:44 AM EST Temperature 36.5 ??C (97.7 ??F) 06/29/2024 9:44 AM ES T Respiratory Rate 18 06/29/2024 9:44 AM EST Oxygen Saturation - - Inhaled Oxygen Concentration - - Weight 79.4 kg (175 lb) 06/29/2024 9:44 AM EST Height 162.6 cm (5' 4 ) 06/29/2024 9:44 AM EST Body Mass Index 30.04 06/29/2024 9:44 AM EST documented in this encounter Progress Notes * Savannah Zapata MD - 06/29/2024 10:15 AM EST Subjective Patient ID: Nakul Manuel is a 54 y.o. female who presents for Gynecologic Exam. Gynecologic Exam The patient's pertinent negatives include no genital itching, genital lesions, genital odor, genital rash, missed menses, pelvic pain, vaginal bleeding or vaginal discharge. Associated symptoms include dysuria. Pertinent negatives include no abdominal pain, anorexia, back pain, chills, constipation, diarrhea, discolored urine, fever, joint swelling, nausea, painful intercourse, rash, sore throat,urgency or vomiting. Review of Systems Constitutional: Negative for chills and fever. HENT: Negative for sore throat. Gastrointestinal: Negative for abdominal pain, anorexia, constipation, diarrhea, nausea and vomiting. Genitourinary: Positive for dysuria. Negative for missed menses, pelvic pain, urgency and vaginal discharge. Musculoskeletal: Negative for back pain. Skin: Negative for rash. Objective Physical Exam Constitutional: Appearance: Normal appearance. Cardiovascular: Rate and Rhythm: Normal rate and regular rhythm. Pulses: Normal pulses. Heart sounds: Normal heart sounds. Pulmonary: Effort: Pulmonary effort is normal. Genitourinary: Vagina: Normal. Cervix: Normal. Uterus: Normal. Adnexa: Right adnexa normal and left adnexa normal. Rectum: Normal. Neurological: Mental Status: She is alert. Assessment/Plan Diagnoses and all orders for this visit: Encounter for annual routine gynecological examination Comments: PAP done today Orders: - Pap Smear - HPV High Risk with Reflex to Subtypes - STI testing add on (NG, CT, Trich) Dysuria Comments: UA is neg Advised to increase fluid intake Orders: - POCT Urinalysis documented in this encounter Plan of Treatment Scheduled Orders Name Type Priority Associated Diagnoses Orde r Schedule Pap Smear Pathology and Cytology Routine Encounter for annual routine gynecological examination Ordered: 06/29/2024 HPV High Risk with Reflex to Subtypes Lab Routine Encounter for annual routine gynecological examination Ordered: 06/29/2024 STI testing add on (NG, CT, Trich) Pathology and Cytology Routine Encounter for annual routine gynecological examination Ordered: 06/29/2024 documented as of this encounter Procedures Procedure Name Priority Date/Time Associated Diagnosis Comments POCT URINALYSIS DIPSTICK Routine 06/29/2024 10:14 AM EST Dysuria documented in this encounter Results * POCT Urinalysis (06/29/2024 10:14 AM EST) Color, UA Yellow Clarity, UA Clear Glucose, UA Negative Bilirubin, UA Negative Ketones, UA Negative Spec Grav, UA 1.030 Blood, UA Negative Negative, None Detected pH, UA 5.5 Protein, UA Negative Urobilinogen, UA 0.2 Leukocytes, UA Negative Negative, Rare, Trace Nitrite, UA Negative Negative, None Detected Appearance, UA clear QC Media Lot # [id number] Lot# Expiration Date Urine 06/29/2024 10:1 4 AM EST Savannah Zapata MD POINT OF CARE TEST ENTER/EDIT OR DERABLES Final Result documented in this encounter Visit Diagnoses Diagnosis Encounter for annual routine gynecological examination- Primary Dysuria documented in this encounter Additional Health Concerns Assessment Noted Time PHQ-9 Depression Total Score: 6 06/24/19 25 11:26 AM EST documented as of this encounter Care Teams Pipe Foreman Relationship Specialty Start Date End Date Savannah Zapata MD [address] [place] [phone] PCP - General Family Medicine 09/28/15 documented as of this encounter
--- OUTSIDE RECORDS SUMMARY | 2024-06-29 16:20 | XMS_ITS | Clinical Summary ---
Author Organization [employer] Address [address] [place] [address] 7t [place] [address] Care Team Providers Care Concert Promoter Name Role Phone Savannah Zapata MD Primary Care Provider [phone] Allergies No known active allergies Medications cholecalciferol [...] Encounters Date Type Department Care Team Description 06/29/2024 10:15 AM EST Procedure Visit [facility] [address] [facility] [place] [address] Savannah Zapata MD Encounter for annual routine gynecological examination (Primary Dx); Dysuria 06/29/2024 Travel 06/24/2024 11:15 AM EST Office Visit [facility] [address] [place] [address] Savannah Zapata MD Other specified hypothyroidism (Primary Dx); Vitamin D deficiency; Insomnia, unspecified type 06/24/2024 Orders Only [facility] [address] [place] [address] Savannah Zapata MD 06/24/2024 Travel 06/10/2024 Patient Outreach [facility] [address] [place] [address] Savannah Zapata MD Pre-visit Planning ((Unable to reach for PVP screening, LVM)) 06/01/2024 Telephone [facility] [address] [place], [place] [phone] Savannah Zapata MD Nurse Triage from Last [...] 18 06/29/2024 9:44 AM EST Oxygen Saturation 98% 06/24/2024 11:25 AM EST Inhaled Oxygen Concentration - - Weight 79.4 kg (175 lb) 06/29/2024 9:44 AM EST Height 162.6 cm (5' 4 ) 06/29/2024 9:44 AM EST Body Mass Index 30.04 06/29/2024 9:44 AM EST Plan of Treatment Health Maintenance Due Date Last Done Comments [...] Depression Screening 06/24/2025 06/24/2024, 06/24/2024 Tobacco Screening 06/29/2025 06/29/2024 Mammogram 02/04/2026 02/05/2024 Colorectal Cancer Screening 02/19/2027 [...] DIPSTICK Routine 06/29/2024 10:14 AM EST Dysuria T4, FREE Routine 06/24/2024 12:39 PM EST VITAMIN D,25-OH,TOTAL,IA Routine 06/24/2024 12:39 PM EST Vitamin D deficiency BASIC METABOLIC PANEL Routine 06/24/2024 12:39 PM EST Other specified hypothyroidism LIPID PANEL, STANDARD Routine 06/24/2024 12:39 PM EST Other specified hypothyroidism HEPATIC FUNCTION PANEL Routine 06/24/2024 12:39 PM EST Other specified hypothyroidism TSH W/REFLEX TO FT4 Routine 06/24/2024 1 2:39 PM EST Other specified hypothyroidism LAB COLOGUARD?? COLON CANCER SCREEN Routine 02/20/2024 2:00 AM EDT Encounter for screening for malignant neoplasm of colon BI MAMMOGRAM SCREENING TOMOSYNTHESIS BILATERAL Routine 02/05/2024 3:55 PM EDT Encounter for screening mammogram for breast cancer from Last 3 Months or Most Recently Relevant to Health Maintenance Results * POCT Urinalysis (06/29/2024 10:14 AM [...] CARE TEST ENTER/EDIT OR DERABLES Final Result * Vitamin D, 25-Hydroxy, Total, Immunoassay (06/24/2024 12:39 PM EST) Vitamin D 25-OH Total 40.0 >30 ng/mL [facility] Comment:Health Based Referen ce Values*< 20 ng/mL Pqntavlct92-73 ng/mL Insufficient> 30 ng/mL Sufficient*Demetria MEAD. N [...] ORDERABLES Final Resul t Performing Organization Address City/[facility]/ZIP Co de Phone Number [facility] [address] [place] [phone] * (ABNORMAL) TSH with Reflex to Free T4 (06/24/2024 12:39 PM EST) TSH reflex Free T4 0.09(L) 0.32 - 4.0 uIU/mL [facility] Blood Venous blood specimen / Unknown 06/24/2024 12:39 PM EST 06/24/2024 2:06 PM EST Savannah Zapata MD LAB BLOOD ORDERABLES Final Resul t Performing Organization Address City/[facility]/ZIP Co de Phone Number [facility] [address] [place] [phone] * T4, Free (06/24/2024 12:39 PM EST) Free T4 (Free Thyroxine) 1.29 0.71 - 1.85 ng/dL [facility] 06/24/2024 12:3 9 PM EST 06/24/2024 2:06 PM EST Savannah aZpata MD LAB BLOOD ORDERABLES Final Resul t Performing Organization Address [facility] [place] Phone Number [facility] [address] [place] [phone] * Hepatic Function Panel (06/24/2024 12:39 PM EST) Pathologist [facility] Bilirubin, Total 0.5 0.0 - 1.0 mg/dL [facility] Bilirubin, Direct 0.2 0.0 - 0.5 mg/dL [facility] Aspartate Amino Transferase 25 5 - 31 U/L [facility] Alanine Aminotransferase 21 0 - 31 U/L [facility] Total Protein 7.0 6.5 - 8.0 g/dL [facility] Albumin Level 4.0 3.5 - 5.0 g/dL [facility] Alkaline Phosphatase 59 39 - 117 U/L [facility] Blood Venous blood specimen / Unknown 06/24/2024 12:39 PM EST 06/24/2024 2:06 PM EST us Savannah Zapata MD LAB BLOOD ORDERABLES Final Resul t Performing Organization Address [facility] Co de Phone Number [facility] [address] [place] [phone] * (ABNORMAL) Lipid Panel, Standard (06/24/2024 12:39 PM EST) Triglycerides 113 <150 mg/dL [facility] Comment:Desirable Triglyceri de: less than 150 mg/dLBorderline High Triglyceride 150-199 mg/dLHigh Triglyceride: 200-499 mg/dLVery High Triglyceride: greater than or equal to 5OO mg/dL Cholesterol 202(H) <200 mg/dL [facility] Comment:Desirable Cholestero l: less than 200 mg/dLBorderline High Cholesterol: 200-239 mg/dLHigh Cholesterol: greater than 239 mg/dL LDL Cholesterol Calculated 126(H) <100 mg/dL [facility] Comment:Desirable LDL: less than 100 mg/dLNear Optimal/Above Optimal LDL: 110- 129 mg/dLBorderline High LDL: 130-159 mg/dLHigh LDL: 160-189 mg/dLVery High LDL: greater than or equal to 190 mg/dL HDL Cholesterol 54 >40 mg/dL [facility] Comment:Desirable HDL: great er than 40 mg/dL Note: This HDL assay may give artificially low results in patients with liver disease. Blood Venous blood specimen / Unknown 06/24/2024 12:39 PM EST 06/24/2024 2:06 PM EST us Savannah Zapata MD LAB BLOOD ORDERABLES Final Resul t [facility] [address] [place] [phone] * (ABNORMAL) Basic Metabolic Panel (06/24/2024 12:39 PM EST) Sodium 141 135 - 145 mmol/L [facility] Potassium 4.4 3.3 - 5.1 mmol/L [facility] Chloride 110(H) 96 - 108 mmol/L [facility] Carbon Dioxide 26 22 - 29 mmol/L [facility] Anion Gap 9(L) 12 - 20 [facility] Urea Nitrogen (BUN) 12 9 - 16 mg/dL [facility] Creatinine, Serum 0.59 0.5 - 1.4 mg/dL [facility] Estimated Glomerular Filt Rate >60 [facility] Comment:Chronic Kidney Disea se: Estimated GFR < 60 mL/min/1.93p7Madzil Kidney Disease: Estimated GFR < 15 mL/min/1.73m2 Glucose 97 60 - 115 mg/dL [facility] Calcium 9.5 8.4 - 10.2 mg/dL [facility] Blood Venous blood specimen / Unknown 06/24/2024 12:39 PM EST 06/24/2024 2:06 PM EST us Savannah Zapata MD LAB BLOOD ORDERABLES Final Resul t [facility] [address] [place] [phone] * Cologuard?? colon cancer screening (02/20/2024 2:00 AM EDT) Cologuard Result Negative Negative 02/26/20 8:47 PM EDT [facility] (CLIA #:[id number]) Comment: NEGATIVE TEST RESULT. A negative Cologuard [...] Walker et al, N Engl J Med 2014;370(14):1286- 1297) The normal value (reference range) for this assay is negative. COLOGUARD RE-SCREENING RECOMMENDATION: Periodic colorectal cancer screening is an important part of preventive healthcare for asymptomatic individuals at average risk for colorectal cancer. ??Following a negative Cologuard result, the [place] [employer] and U.S. Multi-Society Task Force screening guidelines recommend a Cologuard re-screening interval of 3 years. References: [place] [employer] Guideline for Colorectal Cancer Screening: https://www.cancer.org/cancer/mbttz-vzoffs-hlzjme/tcwbgpouh-vojyawxsy-flysctd/ac s-rec ommendations.html.; Home DK, Anabel CR, Vivian BravoK, Colorectal Cancer Screening: Recommendations for Physicians and Patients from the U.S. Multi-Society Task Force on Colorectal Cancer Screening , Am J Gastroenterology 2017; 112:0268-1729. TEST DESCRIPTION: Composite algorithmic analysis of stool [...] screened with both Cologuard and colonoscopy. (Ivy Holbrook al, N Engl J Med 2014;370(14):6205-8800.) Cologuard may produce a false negative or false positive result (no colorectal cancer or precancerous polyp present at colonoscopy follow up). A negative Cologuard test result does not guarantee the absence of CRC or advanced adenoma (pre-cancer). The current Cologuard screening interval is every 3 years. ([place] [employer] Society and U.S. Multi-Society Task Force). Cologuard performance data in a 10,000 patient pivotal study using colonoscopy as the reference method can be accessed at the following location: www.viavoo.com/results. Additional description of the Cologuard test process, warnings and precautions can be found at www.uromovierd.com. Stool specimen (specimen) 02/20/2024 2:00 AM EDT 02/21/2024 10:46 AM EDT Savannah Zapata MD LAB MOLECULAR DIAGNOSTICS ORDERA BLES Final Result [facility] (CLIA #:[id number]) [address] [place] [address], * BI Mammogram Screening Tomosynthesis Bilateral (02/05/2024 3:55 PM EDT) Anatomical Region Laterality Modality Breast Bilateral Mammography 02/05/2024 3:55 PM EDT Narrative 02/18/2024 12:26 PM EDT ? [facility] [place] ? [address] ?[place], [place] [address] ? Mammography Report ? Signed ? Patient: FrancoisekarinaNaklu ?MR#: [id number] ? : 1970 ?Acct:[id number] ? Age/Sex: 53 / F ?ADM Date: 02/05/24 ? Loc: HO.MAMMO ? Attending Dr: Savannah Zapata MD ? Ordering Physician: Savannah Zapata MD ?Results: 1Negati ?? ve ? Date of Service: 02/05/24 ?Follow Up: 1 Year From Orig ?? inal Mammogram ? Procedure(s): MM tomosynthesis screening BI ?? Accession Number(s): [id number] ? cc: Savannah Zapata MD ? EXAMINATION: [...] DD/ 1555 ? TD/TT: 02/05/24 1620 ? Day Porter: ? Procedure Note Jose, Image - 02/18/2024 [facility] [address] [place] [address] Mammography Report Signed Patient: Moise Manuel#: [id number] : 1970Acct:[id number] Age/Sex: 53 / FADM Date: 02/05/24 Loc: JORDAN Attending Dr: Savannah Zapata MD Ordering Physician: Savannah Zapataesults: 1Negati ve Date of Service: 02/05/24Follow Up: 1 Year From Orig inal Mammogram Procedure(s): MM tomosynthesis screening BI Accession Number(s): [id number] cc: Savannah Zapata MD EXAMINATION: MM SCREENING [...] Poppy Gale DO 02/18/2024 12:23 PM EDT RP Dictated By: Poppy Gale DO Signed By: <Electronically signed by Poppy Gale DO in OV> 02/18/24 1223 DD/ 1555 TD/TT: 02/05/24 1620 Day Porter: Savannah Zapata MD IMG BI PROCEDURES Final Result from Last 3 Months or Most Recently Relevant to Health Maintenance Insurance [employer] Care Teams Concert Promoter Relationship Specialty Start Date End Date Savannah Zapata MD [address] [place] [phone] PCP - General Family Medicine 09/28/15
--- OUTSIDE RECORDS SUMMARY | 2024-06-29 16:20 | XMS_ITS | Encounter Summary ---
Author Organization [employer] Address [address] [place] [address] 7t [place] [address] Care Team Providers Care Noc Analyst Name Role Phone Savannah Zapata MD Primary Care Provider [phone] Encounter Details Date Type Department Care Team (Latest Contact Info) Description 06/29/2024 Travel Social History Tobacco Use Types Packs/Day [...] documented as of this encounter Care Teams Noc Analyst Relationship Specialty Start Date End Date Savannah Zapata MD [address] [place] [phone] PCP - General Family Medicine 09/28/15 documented as of this encounter
--- OUTSIDE RECORDS SUMMARY | 2024-06-29 16:20 | XMS_ITS | Encounter Summary ---
Author Organization [employer] Address [address] [place] [address] 7t [place] [address] Care Team Providers Care Metal Burrer Name Role Phone Savannah Zapata MD Primary Care Provider [phone] Encounter Details Date Type Department Care Team ([facility] st Contact Info) Description 06/24/2024 Orders Only [facility] [address] [place], [place] [phone] Savannah Zapata MD [address] [place] [address] Social History Tobacco Use Types Packs/Day Years [...] Procedure Name Priority Date/Time Associated Diagnosis Comments T4, FREE Routine 06/24/2024 12:39 PM EST documented in this encounter Results * T4, Free (06/24/2024 12:39 PM EST) Free T4 (Free Thyroxine) 1.29 0.71 - 1.85 ng/dL [facility] 06/24/2024 12:3 9 PM EST 06/24/2024 2:06 PM EST Savannah Zapata MD LAB BLOOD ORDERABLES Final Resul t [facility] [address] [place] [phone] documented in this encounter Visit Diagnoses Not on filedocumented in this encounter Additional Health Concerns Assessment Noted Time PHQ-9 Depression Total Score: 6 06/24/19 25 11:26 AM EST documented as of this encounter Care Teams Metal Burrer Relationship Specialty Start Date End Date Savannah Zapata MD [address] [place] [phone] PCP - General Family Medicine 09/28/15 documented as of this encounter
--- OUTSIDE RECORDS SUMMARY | 2024-06-29 16:20 | XMS_ITS | Encounter Summary ---
Author Organization [employer] Address [address] [place] [address] 7t [place] [address] Care Team Providers Care Typing Bookkeeper Name Role Phone Savannah Zapata MD Primary Care Provider [phone] Reason for Visit * Reason Onset Date Comments Nurse Triage 06/01/2024 Encounter Details Date Type Department Care Team ([facility] st Contact Info) Description 06/01/2024 Telephone [facility] [address] [place] [address] Savannah Zapata MD [address] [place], [place] [phone] Nurse Triage Social History Tobacco Use Types [...] pain. Disposition reviewed and Daughter advised of [facility] hours and availability for today and tomorrow. Daughter will call early AM to see if [facility] has any availability. Daughter is also requesting to schedule routine exam with PCP. No PCP availability for Triage at time of call. Forwarded to PCP and team as FYI to follow up PRN Disposition reviewed and in agreement with plan. [facility] hours and availability explained. [...] PM EST Daughter returning call Please call [phone] * Telephone Encounter - Rashmi Esquivel RN [...] on filedocumented in this encounter Care Teams Typing Bookkeeper Relationship Specialty Start Date End Date Savannah Zapata MD [address] [place] [phone] PCP - General Family Medicine 09/28/15 documented as of this encounter
--- OUTSIDE RECORDS SUMMARY | 2024-06-29 16:20 | XMS_ITS | Encounter Summary ---
Author Organization [employer] Address [address] [place] [address] 7t [place] [address] Care Team Providers Care Assembly Operator Name Role Phone Savannah Zapata MD Primary Care Provider [phone] Reason for Visit * Reason Onset Date Comments Med Refill 09/22/2023 Encounter Details Date Type Department Care Team (Late st Contact Info) Description 09/22/2023 Telephone [facility] [address] [place] [address] Savannah Zapata MD [address] [place], [place] [phone] Med Refill Social History Tobacco Use Types [...] the levothyroxine (Synthroid, Levoxyl) 100 MCG tablet administrative underwriter did call pharmacy and was told has not received the script for the medication documented in this encounter Plan of Treatment Not on file documented as of this encounter Visit Diagnoses Not on filedocumented in this encounter Care Teams Assembly Operator Relationship Specialty Start Date End Date Savannah Zapata MD [address] [place] [phone] PCP - General Family Medicine 09/28/15 documented as of this encounter
--- OUTSIDE RECORDS SUMMARY | 2024-06-29 16:20 | XMS_ITS | Encounter Summary ---
Author Organization [employer] Address [address] [place] [address] 7t [place] [address] Care Team Providers Care Narrow Fabric Calenderer Name Role Phone Savannah Zapata MD Primary Care Provider Encounter Details Date Type Department Care Team [...] documented as of this encounter Care Teams Narrow Fabric Calenderer Relationship Specialty Start Date End Date Savannah Zapata MD [address] [place] [phone] PCP - General Family Medicine 09/28/15 documented as of this encounter
--- OUTSIDE RECORDS SUMMARY | 2024-06-29 16:20 | XMS_ITS | Encounter Summary ---
Author Organization [employer] Address [address] [place] [address] 7t [place] [address] Care Team Providers Care Sheriff'S Officer Name Role Phone Savannah Zapata MD Primary Care Provider [phone] Encounter Details Date Type Department Care Team ([facility] st Contact Info) Description [facility] [address] [place], [place] [phone] Savannah Zapata MD [address] [place] [address] [phone] Social History Tobacco Use Types Packs/Day Years [...] on filedocumented in this encounter Care Teams Sheriff'S Officer Relationship Specialty Start Date End Date Savannah Zapata MD [address] [place], [place] [phone] PCP - General Family Medicine 09/28/15 documented as of this encounter
== END 2024-06-29 13:20 | disposition home or self-care (01) ==
LOC: HO.CHCLNP 13:19
PROVIDERS: Visit Provider Student in an Organized Health Care Education/Training Program
DX: Z13.89 Encounter for screening for other disorder (principal)

== ENCOUNTER 2024-06-29 14:21 | Outpatient (REF) | payer OTHER, SELFPAY ==
--- OUTSIDE RECORDS SUMMARY | 2024-06-29 18:00 | XMS_ITS | Encounter Summary ---
Author Organization [employer] Address [address] [place] [address] 7t [place] [address] Care Team Providers Care Director Of Marketing [employer]ds Name Role Phone Savannah Zapata MD Primary Care Provider [phone] Encounter Details Date Type Department Care Team [...] documented as of this encounter Care Teams Director Of Marketing [employer] Relationship Specialty Start Date End Date Savannah Zapata MD [address] [place] [phone] PCP - General Family Medicine 09/28/15 documented as of this encounter
--- OUTSIDE RECORDS SUMMARY | 2024-06-29 18:00 | XMS_ITS | Encounter Summary ---
Author Organization [employer] Address [address] [place] [address] 7t [place] [address] Care Team Providers Care Cnc Service Technician Name Role Phone Savannah Zapata MD Primary Care Provider Encounter Details Date Type Department Care Team ([facility] st Contact Info) Description 09/06/2022 [facility] [address] [place], [place] [phone] Savannah Zapata MD [address] [place] [address] [phone] Social History Tobacco Use Types Packs/Day Years [...] on filedocumented in this encounter Care Teams Cnc Service Technician Relationship Specialty Start Date End Date Savannah Zapata MD [address] [place], [place] [phone] PCP - General Family Medicine 09/28/15 documented as of this encounter
--- OUTSIDE RECORDS SUMMARY | 2024-06-29 18:00 | XMS_ITS | Encounter Summary ---
Author Organization [employer] Address [address] [place] [address] 7t [place] [address] Care Team Providers Care Cad Application Support Specialist Name Role Phone Savannah Zapata MD Primary Care Provider [phone] Reason for Visit * Reason Comments Insomnia Encounter Details Date Type Department Care Team (Latest Contact Info) Description 06/24/2024 11:15 AM EST Office Visit [facility] [address] [place] [address] Savannah Zapata MD [address] [place] [address] Other specified hypothyroidism (Primary Dx); Vitamin D [...] Vitamin D 25-OH Total 40.0 >30 ng/mL [facility] Comment:Health Based Referen ce Values*< 20 ng/mL Xltccjirf43-11 ng/mL Insufficient> 30 ng/mL Sufficient*Demetria MEAD. N [...] ORDERABLES Final Resul t Performing Organization Address City/[facility] de Phone Number [facility] [address] [place] [address] [phone] * (ABNORMAL) Basic Metabolic Panel (06/24/2024 12:39 PM EST) Sodium 141 135 - 145 mmol/L [facility] Potassium 4.4 3.3 - 5.1 mmol/L [facility] Chloride 110(H) 96 - 108 mmol/L [facility] Carbon Dioxide 26 22 - 29 mmol/L [facility] Anion Gap 9(L) 12 - 20 [facility] Urea Nitrogen (BUN) 12 9 - 16 mg/dL [facility] Creatinine, Serum 0.59 0.5 - 1.4 mg/dL [facility] Estimated Glomerular Filt Rate >60 [facility] Comment:Chronic Kidney Disea se: Estimated GFR < 60 mL/min/[id number] Kidney Disease: Estimated GFR < 15 mL/min/1.73m2 Glucose 97 60 - 115 mg/dL [facility] Calcium 9.5 8.4 - 10.2 mg/dL [facility] Blood Venous blood specimen / Unknown 06/24/2024 12:39 PM EST 06/24/2024 2:06 PM EST Savannah Zapata MD LAB BLOOD ORDERABLES Final Resul t Performing Organization Address [facility] Co de Phone Number [facility] [address] [place] [address] [phone] * (ABNORMAL) Lipid Panel, Standard (06/24/2024 12:39 PM EST) Triglycerides 113 <150 mg/dL [facility] Comment:Desirable Triglyceri de: less than 150 mg/dLBorderline High Triglyceride 150-199 mg/dLHigh Triglyceride: 200-499 mg/dLVery High Triglyceride: greater than or equal to 5OO mg/dL Cholesterol 202(H) <200 mg/dL [facility] Comment:Desirable Cholestero l: less than 200 mg/dLBorderline High Cholesterol: 200-239 mg/dLHigh Cholesterol: greater than 239 mg/dL LDL Cholesterol Calculated 126(H) <100 mg/dL [facility] Comment:Desirable LDL: less than 100 mg/dLNear Optimal/Above Optimal LDL: 110- 129 mg/dLBorderline High LDL: 130-159 mg/dLHigh LDL: 160-189 mg/dLVery High LDL: greater than or equal to 190 mg/dL HDL Cholesterol 54 >40 mg/dL [facility] Comment:Desirable HDL: great er than 40 mg/dL Note: This HDL assay may give artificially low results in patients with liver disease. Blood Venous blood specimen / Unknown 06/24/2024 12:39 PM EST 06/24/2024 2:06 PM EST Savannah Zapata MD LAB BLOOD ORDERABLES Final Resul t Performing Organization Address [facility] Co de Phone Number [facility] [address] [place] [phone] * Hepatic Function Panel (06/24/2024 12:39 PM EST) Bilirubin, Total 0.5 0.0 - 1.0 mg/dL [facility] Bilirubin, Direct 0.2 0.0 - 0.5 mg/dL [facility] Aspartate Amino Transferase 25 5 - 31 U/L [facility] Alanine Aminotransferase 21 0 - 31 U/L [facility] Total Protein 7.0 6.5 - 8.0 g/dL [facility] Albumin Level 4.0 3.5 - 5.0 g/dL [facility] Alkaline Phosphatase 59 39 - 117 U/L [facility] Blood Venous blood specimen / Unknown 06/24/2024 12:39 PM EST 06/24/2024 2:06 PM EST Savannah Zapata MD LAB BLOOD ORDERABLES Final Resul t Performing Organization Address [facility] Co de Phone Number [facility] [address] [place] [phone] * (ABNORMAL) TSH with Reflex to Free T4 (06/24/2024 12:39 PM EST) TSH reflex Free T4 0.09(L) 0.32 - 4.0 uIU/mL [facility] Blood Venous blood specimen / Unknown 06/24/2024 12:39 PM EST 06/24/2024 2:06 PM EST us Savannah Zapata MD LAB BLOOD ORDERABLES Final Resul t [facility] [address] [place] [address] [phone] documented in this encounter Visit Diagnoses Diagnosis Other specified hypothyroidism- Primary Vitamin D deficiency Insomnia, unspecified type documented in this encounter Additional Health Concerns Assessment Noted Time PHQ-9 Depression Total Score: 6 06/24/19 25 11:26 AM EST documented as of this encounter Care Teams Cad Application Support Specialist Relationship Specialty Start Date End Date Savannah Zapata MD [address] [place] [address] PCP - General Family Medicine 09/28/15 documented as of this encounter
--- OUTSIDE RECORDS SUMMARY | 2024-06-29 18:00 | XMS_ITS | Encounter Summary ---
Author Organization [employer] Address [address] [place] [address] 7t [place] [address] Care Team Providers Care Belt And Link Shop Supervisor Name Role Phone Savannah Zapata MD Primary Care Provider [phone] Reason for Visit * Reason Onset Date Comments Nurse Triage 06/01/2024 Encounter Details Date Type Department Care Team ([facility] st Contact Info) Description 06/01/2024 Telephone [facility] MEDICINE [address] [place] [address] Savannah Zapata MD [address] [place], [place] [phone] Nurse Triage Social History Tobacco Use Types [...] pain. Disposition reviewed and Daughter advised of [facility] hours and availability for today and tomorrow. Daughter will call early AM to see if [facility] has any availability. Daughter is also requesting to schedule routine exam with PCP. No PCP availability for Triage at time of call. Forwarded to PCP and team as FYI to follow up PRN Disposition reviewed and in agreement with plan. [facility] In [facility] hours and availability explained. [...] PM EST Daughter returning call Please call [phone] * Telephone Encounter - Rashmi Esquivel RN [...] on filedocumented in this encounter Care Teams Belt And Link Shop Supervisor Relationship Specialty Start Date End Date Savannah Zapata MD [address] [place] [phone] PCP - General Family Medicine 09/28/15 documented as of this encounter
--- OUTSIDE RECORDS SUMMARY | 2024-06-29 18:00 | XMS_ITS | Encounter Summary ---
Author Organization [employer] Address [address] [place] [address] 7t [place] [address] Care Team Providers Care Datapower Consultant Name Role Phone Savannah Zapata MD Primary Care Provider Reason for Visit * Reason Onset Date Comments Lab Orders 09/22/2023 Encounter Details Date Type Department Care Team ([facility] st Contact Info) Description 09/22/2023 Telephone [facility] MEDICINE [address] [place] [address] Savannah Zapata MD [address] [place], [place] [phone] Lab Orders Social History Tobacco Use Types [...] how levothyroxine is working. She states pt's [place] doctor was seen last November and recommended [...] on filedocumented in this encounter Care Teams Datapower Consultant Relationship Specialty Start Date End Date Savannah Zapata MD [address] [place] [address] PCP - General Family Medicine 09/28/15 documented as of this encounter
--- OUTSIDE RECORDS SUMMARY | 2024-06-29 18:00 | XMS_ITS | Encounter Summary ---
Author Organization [employer] Address [address] [place] [address] 7t [place] [address] Care Team Providers Care Model Builder Display Name Role Phone Savannah Zapata MD Primary Care Provider [phone] Encounter Details Date Type Department Care Team ([facility] st Contact Info) Description 06/24/2024 Orders Only [facility] MED & PEDS [address] [place], [place] [phone] Savannah Zapata MD [address] [place] [address] Social History Tobacco Use Types Packs/Day Years [...] (Free Thyroxine) 1.29 0.71 - 1.85 ng/dL [facility] 06/24/2024 12:3 9 PM EST 06/24/2024 2:06 PM EST Savannah Zapata MD LAB BLOOD ORDERABLES Final Resul t [facility] [address] [place] [address] [phone] documented in this encounter Visit Diagnoses Not on filedocumented in this encounter Additional Health Concerns Assessment Noted Time PHQ-9 Depression Total Score: 6 06/24/19 25 11:26 AM EST documented as of this encounter Care Teams Model Builder Display Relationship Specialty Start Date End Date Savannah Zapata MD [address] [place] [phone] PCP - General Family Medicine 09/28/15 documented as of this encounter
--- OUTSIDE RECORDS SUMMARY | 2024-06-29 18:00 | XMS_ITS | Clinical Summary ---
Author Organization [employer] Address [address] [place] [address] 7t [place] [address] Care Team Providers Care Senior Executive Assistant Name Role Phone Savannah Zapata MD Primary Care Provider [phone] Allergies No known active allergies Medications cholecalciferol [...] Description 06/29/2024 10:15 AM EST Procedure Visit [facility] [address] [facility] [place] [address] Savannah Zapata MD Encounter for annual routine gynecological examination (Primary Dx); Dysuria 06/29/2024 Travel 06/24/2024 11:15 AM EST Office Visit [facility] [address] [place] [address] Savannah Zapata MD Other specified hypothyroidism (Primary Dx); Vitamin D deficiency; Insomnia, unspecified type 06/24/2024 Orders Only [facility] MED & PEDS [address] [place] [address] Savannah Zapata MD 06/24/2024 Travel 06/10/2024 Patient Outreach [facility] [address] [place] [address] Savannah Zapata MD Pre-visit Planning ((Unable to reach for PVP screening, LVM)) 06/01/2024 Telephone [facility] [address] [place], [place] [phone] Savannah Zapata MD Nurse Triage from Last [...] Vitamin D 25-OH Total 40.0 >30 ng/mL [facility] Comment:Health Based Referen ce Values*< 20 ng/mL Ccllvvvaa31-40 ng/mL Insufficient> 30 ng/mL Sufficient*Demetria MEAD. N [...] ORDERABLES Final Resul t Performing Organization Address City/[facility]/ZIP Co de Phone Number [facility] [address] [place] [phone] * (ABNORMAL) TSH with Reflex to Free T4 (06/24/2024 12:39 PM EST) TSH reflex Free T4 0.09(L) 0.32 - 4.0 uIU/mL [facility] Blood Venous blood specimen / Unknown 06/24/2024 12:39 PM EST 06/24/2024 2:06 PM EST Savannah Zapata MD LAB BLOOD ORDERABLES Final Resul t Performing Organization Address City/[facility]/ZIP Co de Phone Number [facility] [address] [place] [phone] * T4, Free (06/24/2024 12:39 PM EST) Free T4 (Free Thyroxine) 1.29 0.71 - 1.85 ng/dL [facility] 06/24/2024 12:3 9 PM EST 06/24/2024 2:06 PM EST Savannah Zapata MD LAB BLOOD ORDERABLES Final Resul t Performing Organization Address [facility] Co ok Phone Number [facility] [address] [place] [phone] * Hepatic Function Panel (06/24/2024 12:39 PM EST) Pathologist [facility] Bilirubin, Total 0.5 0.0 - 1.0 mg/dL [facility] Bilirubin, Direct 0.2 0.0 - 0.5 mg/dL [facility] Aspartate Amino Transferase 25 5 - 31 U/L [facility] Alanine Aminotransferase 21 0 - 31 U/L [facility] Total Protein 7.0 6.5 - 8.0 g/dL [facility] Albumin Level 4.0 3.5 - 5.0 g/dL [facility] Alkaline Phosphatase 59 39 - 117 U/L [facility] Blood Venous blood specimen / Unknown 06/24/2024 12:39 PM EST 06/24/2024 2:06 PM EST us Savannah Zapata MD LAB BLOOD ORDERABLES Final Resul t Performing Organization Address [facility] Co de Phone Number [facility] [address] [place] [phone] * (ABNORMAL) Lipid Panel, Standard (06/24/2024 12:39 PM EST) Triglycerides 113 <150 mg/dL [facility] Comment:Desirable Triglyceri de: less than 150 mg/dLBorderline High Triglyceride 150-199 mg/dLHigh Triglyceride: 200-499 mg/dLVery High Triglyceride: greater than or equal to 5OO mg/dL Cholesterol 202(H) <200 mg/dL [facility] Comment:Desirable Cholestero l: less than 200 mg/dLBorderline High Cholesterol: 200-239 mg/dLHigh Cholesterol: greater than 239 mg/dL LDL Cholesterol Calculated 126(H) <100 mg/dL [facility] Comment:Desirable LDL: less than 100 mg/dLNear Optimal/Above Optimal LDL: 110- 129 mg/dLBorderline High LDL: 130-159 mg/dLHigh LDL: 160-189 mg/dLVery High LDL: greater than or equal to 190 mg/dL HDL Cholesterol 54 >40 mg/dL [facility] Comment:Desirable HDL: great er than 40 mg/dL Note: This HDL assay may give artificially low results in patients with liver disease. Blood Venous blood specimen / Unknown 06/24/2024 12:39 PM EST 06/24/2024 2:06 PM EST us Savannah Zapata MD LAB BLOOD ORDERABLES Final Resul t [facility] [address] [place] [phone] * (ABNORMAL) Basic Metabolic Panel (06/24/2024 12:39 PM EST) Sodium 141 135 - 145 mmol/L [facility] Potassium 4.4 3.3 - 5.1 mmol/L [facility] Chloride 110(H) 96 - 108 mmol/L [facility] Carbon Dioxide 26 22 - 29 mmol/L [facility] Anion Gap 9(L) 12 - 20 [facility] Urea Nitrogen (BUN) 12 9 - 16 mg/dL [facility] Creatinine, Serum 0.59 0.5 - 1.4 mg/dL [facility] Estimated Glomerular Filt Rate >60 [facility] Comment:Chronic Kidney Disea se: Estimated GFR < 60 mL/min/1.22v1Gvicvg Kidney Disease: Estimated GFR < 15 mL/min/1.73m2 Glucose 97 60 - 115 mg/dL [facility] Calcium 9.5 8.4 - 10.2 mg/dL [facility] Blood Venous blood specimen / Unknown 06/24/2024 12:39 PM EST 06/24/2024 2:06 PM EST us Savannah Zapata MD LAB BLOOD ORDERABLES Final Resul t [facility] [address] [place] [address] [phone] * Cologuard?? colon cancer screening (02/20/2024 2:00 AM EDT) Cologuard Result Negative Negative 02/26/20 8:47 PM EDT [facility] (CLIA #:[id number]) Comment: NEGATIVE TEST RESULT. A negative Cologuard [...] cancer. ??Following a negative Cologuard result, the [employer] Society and U.S. Multi-Society Task Force screening guidelines recommend a Cologuard re-screening interval of 3 years. References: [employer] Guideline for Colorectal Cancer Screening: https://www.cancer.org/cancer/ifgzb-qrzbll-bfguay/fpamxaqxs-pbxwagnou-bdyzfpc/ac s-rec ommendations.html.; Home DK, Anabel CR, Vivian BravoK, Colorectal Cancer Screening: Recommendations for Physicians and Patients from the U.S. Multi-Society Task Force on Colorectal Cancer Screening , Am J Gastroenterology 2017; 112:9403-3749. TEST DESCRIPTION: Composite algorithmic analysis of stool [...] (Ivy Holbrook al, N Engl J Med 2014;370(14):9435-9372.) Cologuard may produce a false negative or false positive result (no colorectal cancer or precancerous polyp present at colonoscopy follow up). A negative Cologuard test result does not guarantee the absence of CRC or advanced adenoma (pre-cancer). The current Cologuard screening interval is every 3 years. ([employer] Society and U.S. Multi-Society Task Force). Cologuard performance data in a 10,000 patient pivotal study using colonoscopy as the reference method can be accessed at the following location: www.[employer].com/results. Additional description of the Cologuard test process, warnings and precautions can be found at www.Ampriusrd.com. Stool specimen (specimen) 02/20/2024 2:00 AM EDT 02/21/2024 10:46 AM EDT Savannah Zapata MD LAB MOLECULAR DIAGNOSTICS ORDERA BLES Final Result [facility] (CLIA #:[id number]) [address] [place] [address], * BI Mammogram Screening Tomosynthesis Bilateral (02/05/2024 3:55 PM EDT) Anatomical Region Laterality Modality Breast Bilateral Mammography 02/05/2024 3:55 PM EDT Narrative 02/18/2024 12:26 PM EDT ? [facility] ? [address] ?[place], [place] [address] ? Mammography Report ? Signed ? Patient: FrancoisekarinaNakul ?MR#: [id number] ? : 1970 ?Acct:[id number] ? Age/Sex: 53 / F ?ADM Date: 02/05/24 ? Loc: HO.MAMMO ? Attending Dr: Savannah Zapata MD ? Ordering Physician: Savannah Zapata MD ?Results: 1Negati ?? ve ? Date of Service: 02/05/24 ?Follow Up: 1 Year From Orig ?? inal Mammogram ? Procedure(s): MM tomosynthesis screening BI ?? Accession Number(s): [id number] ? cc: Savannah Zapata MD ? EXAMINATION: [...] DD/ 1555 ? TD/TT: 02/05/24 1620 ? Higher Education Administrator: ? Procedure Note Jose, Image - 02/18/2024 [facility] [address] [place] [address] Mammography Report Signed Patient: Moise Manuel#: [id number] : 1970Acct:[id number] Age/Sex: 53 / FADM Date: 02/05/24 Loc: J[facility] Attending Dr: Savannah Zapata MD Ordering Physician: Savannah Zapataesults: 1Negati ve Date of Service: 02/05/24Follow Up: 1 Year From Orig inal Mammogram Procedure(s): MM tomosynthesis screening BI Accession Number(s): [id number] cc: Savannah Zapata MD EXAMINATION: MM SCREENING [...] 02/18/24 1223 DD/ 1555 TD/TT: 02/05/24 1620 Higher Education Administrator: Savannah Zapata MD IMG BI PROCEDURES Final Result from Last 3 Months or Most Recently Relevant to Health Maintenance Insurance [facility] Care Teams Senior Executive Assistant Relationship Specialty Start Date End Date Savannah Zapata MD [address] [place] [phone] PCP - General Family Medicine 09/28/15
--- OUTSIDE RECORDS SUMMARY | 2024-06-29 18:00 | XMS_ITS | Encounter Summary ---
Author Organization [employer] Address [address] [place] [address] 7t [place] [address] Care Team Providers Care Rn Disease Management Name Role Phone Savannah Zapata MD Primary Care Provider [phone] Reason for Visit * Reason Comments Gynecologic Exam Encounter Details Date Type Department Care Team (Latest Contact Info) Description 06/29/2024 10:15 AM EST Procedure Visit [facility] [address] [place] [address] Savannah Zapata MD [address] [place] [address] Encounter for annual routine gynecological examination (Primary [...] documented as of this encounter Care Teams Rn Disease Management Relationship Specialty Start Date End Date Savannah Zapata MD [address] [place] [phone] PCP - General Family Medicine 09/28/15 documented as of this encounter
--- OUTSIDE RECORDS SUMMARY | 2024-06-29 18:00 | XMS_ITS | Encounter Summary ---
Author Organization [employer] Address [address] [place] [address] 7t [place] [address] Care Team Providers Care Bilingual Speech Language Pathologist Name Role Phone Savannah Zapata MD Primary Care Provider [phone] Reason for Visit * Reason Comments Med Refill Encounter Details Date Type Department Care Team ([facility] Contact Info) Description 09/17/2022 Refill [facility] MED & PEDS [address] [place], [place] [phone] Savannah Zapata MD [address] [place] [address] Social History Tobacco Use Types Packs/Day Years [...] on filedocumented in this encounter Care Teams Bilingual Speech Language Pathologist Relationship Specialty Start Date End Date Savannah Zapata MD [address] [place] [phone] PCP - General Family Medicine 09/28/15 documented as of this encounter
--- OUTSIDE RECORDS SUMMARY | 2024-06-29 18:00 | XMS_ITS | Encounter Summary ---
Author Organization [employer] Address [address] [place] [address] 7t [place] [address] Care Team Providers Care Quill Cleaning Machine Operator Name Role Phone Savannah Zapata MD Primary Care Provider [phone] Reason for Visit * Reason Onset Date Comments Med Refill 09/22/2023 Encounter Details Date Type Department Care Team (Late st Contact Info) Description 09/22/2023 Telephone [facility] MEDICINE [address] [place] [address] Savannah Zapata MD [address] [place], [place] [phone] Med Refill Social History Tobacco Use Types [...] the levothyroxine (Synthroid, Levoxyl) 100 MCG tablet technical writer did call pharmacy and was told has not received the script for the medication documented in this encounter Plan of Treatment Not on file documented as of this encounter Visit Diagnoses Not on filedocumented in this encounter Care Teams Quill Cleaning Machine Operator Relationship Specialty Start Date End Date Savannah Zapata MD [address] [place] [phone] PCP - General Family Medicine 09/28/15 documented as of this encounter
--- OUTSIDE RECORDS SUMMARY | 2024-06-29 18:00 | XMS_ITS | Encounter Summary ---
Author Organization [employer] Address [address] [place] [address] [address]t [place] [address] Care Team Providers Care Learning And Development Analyst Name Role Phone Savannah Zapata MD Primary Care Provider Reason for Visit * Reason Comments Pre-visit Planning (Unable to reach for PVP screening, LVM) Encounter Details Date Type Department Care Team ([facility] st Contact Info) Description 06/10/2024 Patient Outreach [facility] [address] [place] [address] Savannah Zapata MD [address] [place] [address] Pre-visit Planning ((Unable to reach for PVP [...] on filedocumented in this encounter Care Teams Learning And Development Analyst Relationship Specialty Start Date End Date Savannah Zapata MD [address] [place] [address] PCP - General Family Medicine 09/28/15 documented as of this encounter
--- OUTSIDE RECORDS SUMMARY | 2024-06-29 18:00 | XMS_ITS | Encounter Summary ---
Author Organization [employer] Address [address] [place] [address] 7t [place] [address] Care Team Providers Care Engineering Supplies Sales Name Role Phone Savannah Zapata MD Primary Care Provider [phone] Reason for Visit * Reason Comments Med Refill Encounter Details Date Type Department Care Team ([facility] st Contact Info) Description 09/22/2023 Refill [facility] PEDS [address] [place] [address] Savannah Zapata MD [address] [place] [address] Social History Tobacco Use Types Packs/Day Years [...] on filedocumented in this encounter Care Teams Engineering Supplies Sales Relationship Specialty Start Date End Date Savannah Zapata MD [address] [place] [address] PCP - General Family Medicine 09/28/15 documented as of this encounter
--- OUTSIDE RECORDS SUMMARY | 2024-06-29 18:00 | XMS_ITS | Encounter Summary ---
Author Organization [employer] Address [address] [place] [address] 7t [place] [address] Care Team Providers Care Food Service Cashier Name Role Phone Savannah Zapata MD Primary Care Provider [phone] Encounter Details Date Type Department Care Team [...] documented as of this encounter Care Teams Food Service Cashier Relationship Specialty Start Date End Date Savannah Zapata MD [address] [place] [phone] PCP - General Family Medicine 09/28/15 documented as of this encounter
[2024-07-01 14:13] LABS: C. trachomatis RNA TMA NOT DETECTED (NOT DETECTED); N. gonorrhoeae RNA TMA NOT DETECTED (NOT DETECTED)
[2024-07-06 11:16] LABS: HPV Genotype 16 Negative (Negative); HPV Genotype 18 Negative (Negative); HPV High Risk Negative (Negative)
[2024-07-09 13:13] LABS: Trichomonas (NAAT) NOT DETECTED
== END 2024-06-29 14:22 | disposition home or self-care (01) ==
LOC: HO.LNP 14:21
PROVIDERS: Visit Provider Student in an Organized Health Care Education/Training Program
DX: Z01.419 Encounter for gynecological examination (general) (routine) without abnormal findings (principal); Z11.51 Encounter for screening for human papillomavirus (HPV); Z87.42 Personal history of other diseases of the female genital tract
CPT/HCPCS: 87491; 87591; 87626; 87661; 88175